=== PATIENT | male | born 1950 | race Asian ===

== ENCOUNTER 2021-06-21 19:00 | Emergency (ER) | payer OTHER ==
[~2021-06-21] VITALS: Ht 162.6 cm; Wt 61.2 kg
[2021-06-24 09:09] VITALS: BP 170/85
== END 2021-06-24 19:22 | disposition home or self-care (01) ==
LOC: EDBD 19:00 → ER 19:05
DX: Z00.00 Encounter for general adult medical examination without abnormal findings (principal); Z64.4 Discord with counselors